=== PATIENT | male | born 1935 | race Caucasian/White ===

== ENCOUNTER → 2018-01-20 | Outpatient (CLI) | payer MEDICARE ==
[~2018-01-20] MED LIST: DOXAZOSIN MESYLA2 MG PO; TEMAZEPAM15 MG PO; [UNRECOGNIZED DRUG - REMARK]
== END ==
LOC: RAD 09:41
PROVIDERS: ATTEND Internal Medicine
DX: R06.02 Shortness of breath (principal); R05 Cough
CPT/HCPCS: 93306

== ENCOUNTER → 2018-08-20 | Outpatient (CLI) | payer MEDICARE ==
[~2018-08-20] MED LIST changes: +REGADENOSON 0.4 MG/5 ML SYR IV ONE
--- NOTE | 2018-08-20 20:51 | Myoview Stress Test ---
DATE OF STUDY: 08/20/2018 09:27:00 Stress Test - Treadmill ONLY PROCEDURE TITLE: Rest/stress single isotope SPECT imaging with pharmacologic stress and gated SPECT imaging. PROCEDURE IN DETAIL: Pharmacologic stress testing was performed with regadenoson per protocol. The heart rate was 96 beats per minute at rest and increased to 115 beats per minute during the regadenoson infusion, which is 85% of the maximum predicted heart rate. The rest blood pressure was 160/70 and decreased to 137/63 mmHg, which is a normal response. The resting electrocardiogram demonstrated normal sinus rhythm with a left bundle-branch block. There were no ST-segment changes suggestive of myocardial ischemia. PVCs were noted during stress and recovery. Myocardial perfusion imaging was performed at rest following the injection of 11 mCi of tetrofosmin. At peak pharmacologic effect, the patient was injected with 32.5 mCi of tetrofosmin. Gated post-stress tomographic imaging was performed. FINDINGS: The overall quality of the study is fair. Left ventricle is noted to be normal size on the rest and stress studies. SPECT images demonstrate homogeneous tracer distribution throughout the myocardium. Gated SPECT imaging reveals normal myocardial thickening and wall motion. The left ventricular ejection fraction is calculated to be greater than 70%. IMPRESSION: Myocardial perfusion imaging is normal. Overall left ventricular systolic function was normal without regional wall motion abnormalities. Yesika Cancino MD ABS/MODL /[id number]
== END ==
LOC: NM 09:10
PROVIDERS: ATTEND Internal Medicine Cardiovascular Disease
DX: R06.00 Dyspnea, unspecified (principal); R07.2 Precordial pain; I25.10 Atherosclerotic heart disease of native coronary artery without angina pectoris
CPT/HCPCS: 78452; 93017; A9502; J2785

== ENCOUNTER → 2018-09-14 | Day surgery (SDC) | payer MEDICARE ==
[2018-09-09 12:36] LABS: BASOPHILS % 0.4 % (0.0-1.0); EOSINOPHILS # (AUTO) 0.2 (0.0-0.4); EOSINOPHILS % 3.8 % (0.0-6.0); HEMATOCRIT 42.9 % (38.2-49.6); HEMOGLOBIN 14.6 g/dL (14.0-18.0); LYMPHOCYTES % 20.3 % (18.0-39.1); MEAN CORPUSCULAR HEMOGLOBIN 32.7 pg (28-32); MEAN CORPUSCULAR VOLUME 96.2 fL (81-99); MONOCYTES # (AUTO) 0.6 (0.2-0.8); MONOCYTES % 12.1 % (4.4-11.3); NEUTROPHILS # (AUTO) 3.2 (2.1-6.9); PLATELET COUNT 123 x10e3/uL (140-360); RED BLOOD COUNT 4.46 x10e6/uL (4.3-5.7); RED CELL DISTRIBUTION WIDTH 12.7 % (11.7-14.4)
[2018-09-09 13:09] LABS: ANION GAP 11.9 mmol/L (8-16); BLOOD UREA NITROGEN 15 mg/dL (7-26); BUN/CREATININE RATIO 19 (6-25); CALCIUM 9.1 mg/dL (8.4-10.2); CARBON DIOXIDE 21 mmol/L (22-29); CHLORIDE 112 mmol/L (98-107); CREATININE, SERUM 0.81 mg/dL (0.72-1.25); EST GLOMERULAR FILTRATION RATE > 60 ML/MIN (60-); GLUCOSE 112 mg/dL (74-118); POTASSIUM 3.9 mmol/L (3.5-5.1); SODIUM 141 mmol/L (136-145)
--- NOTE | 2018-09-09 13:09 | Diagnostic Imaging Report ---
EXAMINATION: PA and lateral views of the chest. COMPARISON: None CLINICAL HISTORY: Preop for urological procedure DISCUSSION: Left hemidiaphragmatic elevation with linear opacity in the left lung base, likely atelectasis. No airspace consolidation, pleural effusion, or pneumothorax. Tortuous thoracic aorta with otherwise normal cardiomediastinal contour. No acute osseous abnormality. IMPRESSION: No acute cardiopulmonary abnormalities. Signed by: Dr. Vel Huynh M.D. on 09/09/2018 1:05 PM
[~2018-09-14] MED LIST changes: +AMOXICILLIN250 MG PO; +ASPIRIN325 MG PO; +ATORVASTATIN CA20 MG PO; +CEFTRIAXONE SOD 1 GM/NS 50 ML 50 ML IV ONE; +CLOPIDOGREL75 MG PO; +DEXAMETHASONE SOD PHOS INJ 4 MG/ML VIAL ONE; +FUROSEMIDE40 MG PO; +IOPAMIDOL 610MG/1ML 300 MG/ML VIAL IV ONE; +LIDOCAINE HCL 2% LOCAL INJ 5 ML SDV VIAL INJ ONE; +LISINOPRIL2.5 MG PO; +METOPROLOL TART25 MG PO; +NITROGLYCERIN0.4 MG SL; +ONDANSETRON HCL INJ 2MG/ML 2ML 2 MG/ML VIAL ONE; +PROPOFOL IV EMULSION 10 MG/ML 20 ML VIAL ONE; -REGADENOSON 0.4 MG/5 ML SYR IV ONE; +SEVOFLURANE INHAL SOLN 250 ML PEN BTL ONE; +ULTRAM50 MG PO
--- OUTSIDE RECORDS SUMMARY | 2018-09-14 05:10 | XMS REPORT ---
Author Author [facility] Address Unknown Phone Unavailable Care Team Providers Care Communications Manager Name Role Phone MARILYN CINTRON Unavailable Unavailable Jae FLOOD Unavailable Unavailable Problems This patient has no known problems. Allergies, Adverse Reactions, Alerts This patient has no known allergies or adverse reactions. Medications This patient has no known medications. Results Test Description Test Time Test Comments Text Results Atomic Results Result Comments CHEST 2 VIEWS 2018-09-09 13:02:00 [place] [address] Patient Name: BARBARA MONGE SR MR #: [id number] : 1935 Age/Sex: 82/M Req #: [id number] Adm Physician: Ordered by: MARILYN CINTRON MD Report #: [id number] Location: OR Room/Bed: Procedure: [id number] DX/CHEST 2 VIEWS Exam Date: 09/09/18 Exam Time: 1230 REPORT STATUS: Signed EXAMINATION: PA and lateral views of the chest. COMP ARISON: None CLINICAL HISTORY: Preop for urological procedure DISCUSSION: Left hemidiaphragmatic elevation with linear opacity in the left lung base, likely atelectasis. No airspace consolidation, pleural effusion, or pneumothorax. Tortuous thoracic aorta with otherwise normal cardiomediastinal contour. No acute osseous abnormality. IMPRESSION: No acute cardiopulmonary abnormalities. Signed by: Dr. Kelly Reyes M.D. on 09/09/2018 1:05 PM Dictated By: KELLY REYES MD [id number] Transcribed By: MIKE on 09/09/18 8008 COPY TO: MARILYN CINTRON MD Stress Test - Treadmill ONLY 2018-08-20 17:55:00 [place] [address] Patient Name : BARBARA MONGE MR #: [id number] : 1935 Age/Sex: 82/M Adm Physician : MAN FLOOD DO Admit Date : 08/20/18 Location : [place] Room/Bed : REPORT: Myoview Stress Test DATE OF STUDY: 08/20/2018 09:27:00 PROCEDURE TITLE: Rest/stress single isotope SPECT imaging with pharmacologic stress and gated SPECT imaging. PROCEDURE IN DETAIL: Pharmacologic stress testing was performed with regadenoson per protocol. The heart rate was 96 beats per minute at rest and increased to 115 beats per minute during the regadenoson infusion, which is 85% of the maximum predicted heart rate. The rest blood pressure was 160/70 and decreased to 137/63 mmHg, which is a normal response. The resting electrocardiogram demonstrated normal sinus rhythm with a left bundle-branch block. There were no ST-segment changes suggestive of myocardial ischemia. PVCs were noted during stress and recovery. Myocardial perfusion imaging was performed at rest following the injection of 11 mCi of tetrofosmin. At peak pharmacologic effect, the patient was injected with 32.5 mCi of tetrofosmin. Gated post- stress tomographic imaging was performed. FINDINGS: The overall quality of the study is fair. Left ventricle is noted to be normal size on the rest and stress studies. SPECT images demonstrate homogeneous tracer distribution throughout the myocardium. Gated SPECT imaging reveals normal myocardial thickening and wall motion. The left ventricular ejection fraction is calculated to be greater than 70%. IMPRESSION: Myocardial perfusion imaging is normal. Overall left ventricular systolic function was normal without regional wall motion abnormalities. Yesika Cancino MD ABS/FAVIAN /[id number] Signature Date Dictated By: YESIKA CANCINO MD Transcribed By: FAVIAN on 08/20/18 <Electronically signed by YESIKA CANCINO MD><<Signature on File>>09/02/18 4726 COPY TO:
--- NOTE | 2018-09-14 05:43 | Diagnostic Imaging Report ---
Exam: Abdominal film Clinical History: Abdominal radiograph Comparison: None. DISCUSSION: Frontal view of the abdomen shows a nonobstructive bowel gas pattern with mild amount of retained stool. No dilated, air-filled loops of bowel. No abnormal calcifications. No acute bone abnormality. IMPRESSION: 1. Nonobstructive bowel gas pattern. Signed by: Dr. Randall Steele M.D. on 09/14/2018 5:39 AM
[2018-09-14 08:25] VITALS: BP 167/85
--- NOTE | 2018-09-14 17:14 | Operative Report ---
DATE OF PROCEDURE: 09/14/2018 SURGEON: Parminder Spence MD PREOPERATIVE DIAGNOSES: 1. Left kidney stone. 2. Microscopic hematuria. POSTOPERATIVE DIAGNOSES: 1. Left kidney stone. 2. Microscopic hematuria. 3. Benign prostatic hyperplasia. 4. Bladder calculus. PROCEDURES: 1. Cystoscopy, extraction of bladder calculus, simple. 2. Cystoscopy, right ureteral catheterization, right retrograde pyelogram (entirely separate procedure for microscopic hematuria). 3. Staged left-sided shock leprosy. 4. Supervision of fluoroscopy. 5. Interpretation of ventriculography. ANESTHESIA: General. ESTIMATED BLOOD LOSS: Minimal. COMPLICATIONS: None. INDICATIONS FOR PROCEDURE: Mr. Noe is a very pleasant 83-year-old male patient with a very large 1.5 cm left kidney stone per report. The patient has had intermittent renal colic and hematuria, and I had a long discussion of alternatives, risks, and benefits of doing nothing, shock leprosy, ureteroscopy, percutaneous surgery or open surgery. He voiced understanding of the options, alternatives, risks and benefits and elected to proceed. PROCEDURE IN DETAIL: After informed consent was obtained, the patient was taken to the operative suite, placed supine on the operating table. He underwent general anesthesia by Anesthesia Service, was placed in dorsal lithotomy position and sterilely prepped and draped for cystoscopy. A 22.5-Italian cystoscope was inserted per urethra. There was massive trilobar prostatic hypertrophy with bladder stones seen, very small granular of the bladder. These were evacuated. Multiple attempts were made to catheterize both ureteral orifices, only the right could be identified due to the massive trilobar prostatic hypertrophy and was managed to be catheterized with a very large degree of difficulty, reveals slightly delicate ureter. No evidence of filling defects on the right. Left ureter could not be catheterized or identified due to the massive trilobar prostatic hypertrophy. The stone was easily visualized. A total of 1500 shocks were delivered to the stone with good fragmentation seen. The patient tolerated the procedure well and was transferred to the recovery room in excellent condition, no untoward effects noted. Supervision of fluoroscopy and interpretation of ventriculography: I was present for the entire procedure and supervised fluoroscopy. There was no radiologist present. Attention was turned towards the right and left ureters, which were catheterized with a 5-Italian open-ended catheter. Retrograde pyelogram was performed, revealing delicate ureter, delicate pelvocaliceal systems. No evidence of filling defects. No evidence of hydronephrosis. IMPRESSION: Normal right retrograde pyelogram. Parminder Spence MD ES/MODL /[id number] cc: MD Rakesh Raines MD
== END | disposition home or self-care (01) ==
LOC: OR 05:00
PROVIDERS: ATTEND Urology
DX: N20.0 Calculus of kidney (principal); N40.0 Benign prostatic hyperplasia without lower urinary tract symptoms; N21.0 Calculus in bladder; I25.10 Atherosclerotic heart disease of native coronary artery without angina pectoris; I25.2 Old myocardial infarction; F41.9 Anxiety disorder, unspecified; Z01.812 Encounter for preprocedural laboratory examination; Z01.818 Encounter for other preprocedural examination; Z79.82 Long term (current) use of aspirin; Z79.02 Long term (current) use of antithrombotics/antiplatelets; Z95.5 Presence of coronary angioplasty implant and graft; Z87.891 Personal history of nicotine dependence
CPT/HCPCS: 36415; 52353; 71046; 74018; 80048; 85025; J0696; J1100; J2001; J2405; J2704; Q9967; 50590

== ENCOUNTER 2022-02-20 20:21 | Inpatient (IN) | payer MEDICARE ==
[~2022-02-20] VITALS: Ht 188 cm; Wt 104.3 kg
[~2022-02-20 20:21] MED LIST changes: -CEFTRIAXONE SOD 1 GM/NS 50 ML 50 ML IV ONE; -DEXAMETHASONE SOD PHOS INJ 4 MG/ML VIAL ONE; -IOPAMIDOL 610MG/1ML 300 MG/ML VIAL IV ONE; -LIDOCAINE HCL 2% LOCAL INJ 5 ML SDV VIAL INJ ONE; -ONDANSETRON HCL INJ 2MG/ML 2ML 2 MG/ML VIAL ONE; -PROPOFOL IV EMULSION 10 MG/ML 20 ML VIAL ONE; -SEVOFLURANE INHAL SOLN 250 ML PEN BTL ONE
[2022-02-20] MEDS ORDERED: ONDANSETRON HCL INJ 2MG/ML 2ML 2 MG/ML VIAL IV STA (21:12)
[2022-02-20] MEDS ORDERED: SODIUM CHLORIDE 0.9% 1000ML 1,000 ML IV ONE ×3 (21:15→21:30)
[2022-02-20] MEDS ORDERED: ACETAMINOPHEN 325 MG TAB PO ONE (21:15)
[2022-02-20 21:48] LABS: BASOPHILS % 0.1 % (0.0-1.0); HEMATOCRIT 40.9 % (38.2-49.6); HEMOGLOBIN 12.9 g/dL (14.0-18.0); LYMPHOCYTES # (AUTO) 0.6 (1.0-3.2); LYMPHOCYTES % 3.2 % (18.0-39.1); MEAN CORPUSCULAR HEMOGLOBIN 31.2 pg (28-32); MEAN CORPUSCULAR HGB CONC 31.5 g/dL (31-35); MONOCYTES # (AUTO) 1.3 (0.2-0.8); MONOCYTES % 7.7 % (4.4-11.3); NEUTROPHILS # (AUTO) 15.3 (2.1-6.9); NEUTROPHILS % 88.3 % (38.7-80.0); PLATELET COUNT 146 x10e3/uL (140-360); RED BLOOD COUNT 4.13 x10e6/uL (4.3-5.7); RED CELL DISTRIBUTION WIDTH 12.5 % (11.7-14.4)
[2022-02-20 21:49] LABS: ALBUMIN 3.5 g/dL (3.5-5.0); ALBUMIN/GLOBULIN RATIO 1.1 (0.8-2.0); ANION GAP 19.2 mmol/L (8-16); CALCIUM 9.1 mg/dL (8.4-10.2); CREATININE, SERUM 1.44 mg/dL (0.72-1.25); POTASSIUM 4.2 mmol/L (3.5-5.1)
[2022-02-20 22:03] LABS: CREATINE KINASE MB 1.4 ng/mL (0-5.0)
[2022-02-21] VITALS (7 sets, daily range): BP systolic 99–116; BP diastolic 50–52
[2022-02-21 00:03] LABS: CLARITY,URINE SL CLOUDY (CLEAR); COLOR,URINE YELLOW (YELLOW); KETONES,URINE NEGATIVE (NEGATIVE); LEUKOCYTE ESTERASE ,URINE SMALL (NEGATIVE); NITRITE,URINE NEGATIVE (NEGATIVE); PROTEIN,URINE DIPSTICK NEGATIVE (NEGATIVE); URINE UROBILINOGEN 0.2 mg/dL (0.2 - 1)
[2022-02-21 00:06] LABS: AMORPHOUS SEDIMENT,URINE FEW (FEW); BACTERIA,URINE FEW /HPF; EPITHELIAL CELLS,URINE FEW /LPF
[2022-02-21] MEDS ORDERED: DEXTROSE 50% SYRINGE 50 ML IV PRN (00:30)
[2022-02-21] MEDS ORDERED: ONDANSETRON HCL INJ 2MG/ML 2ML 2 MG/ML VIAL IV PRN (00:30)
[2022-02-21] MEDS: SODIUM CHLORIDE 0.9% 1000ML 1,000 ML IV SCH ×3 (02:44→15:26)
[2022-02-21] MEDS ORDERED: IOPAMIDOL 370 MG/ML 100 ML INFUS..BTL INJ ONE (05:16)
[2022-02-21] MEDS: INSULIN REGULAR, HUMAN 100 UNIT/1 ML SQ SCH ×2 (07:30→11:30)
[2022-02-21] MEDS: ASPIRIN 325 MG TAB PO SCH (09:12)
[2022-02-21] MEDS: METOPROLOL TARTRATE 25 MG TAB PO SCH ×2 (09:13→17:00)
[2022-02-21] MEDS: CLOPIDOGREL BISULFATE 75 MG TAB PO SCH (09:13)
[2022-02-21 09:44] LABS: CREATINE KINASE MB 4.3 ng/mL (0-5.0)
[2022-02-21 18:00] LABS: CREATINE KINASE MB 5.3 ng/mL (0-5.0)
[2022-02-21] MEDS: TEMAZEPAM 15 MG CAP PO SCH (21:36)
[2022-02-21] MEDS: ATORVASTATIN 20 MG TAB PO SCH (21:37)
[2022-02-22] VITALS (7 sets, daily range): BP systolic 121–146; BP diastolic 53–66
[2022-02-22 06:28] LABS: BASOPHILS % 0.2 % (0.0-1.0); EOSINOPHILS % 0.2 % (0.0-6.0); HEMATOCRIT 35.1 % (38.2-49.6); HEMOGLOBIN 11.5 g/dL (14.0-18.0); LYMPHOCYTES # (AUTO) 0.8 (1.0-3.2); LYMPHOCYTES % 6.6 % (18.0-39.1); MEAN CORPUSCULAR HEMOGLOBIN 31.8 pg (28-32); MEAN CORPUSCULAR HGB CONC 32.8 g/dL (31-35); MONOCYTES % 8.4 % (4.4-11.3); NEUTROPHILS % 84.1 % (38.7-80.0); PLATELET COUNT 121 x10e3/uL (140-360); RED BLOOD COUNT 3.62 x10e6/uL (4.3-5.7); RED CELL DISTRIBUTION WIDTH 13.3 % (11.7-14.4)
[2022-02-22] MEDS: ALBUTEROL/IPRATROPIUM 3 ML NEB NEB SCH ×3 (07:00→19:30)
[2022-02-22 07:02] LABS: ALBUMIN 2.8 g/dL (3.5-5.0); ANION GAP 13.2 mmol/L (8-16); CALCIUM 8.2 mg/dL (8.4-10.2); CREATININE, SERUM 1.05 mg/dL (0.72-1.25); POTASSIUM 4.2 mmol/L (3.5-5.1)
[2022-02-22] MEDS: METOPROLOL TARTRATE 25 MG TAB PO SCH ×2 (10:13→17:28)
[2022-02-22] MEDS: CLOPIDOGREL BISULFATE 75 MG TAB PO SCH (10:13)
[2022-02-22] MEDS: ASPIRIN 325 MG TAB PO SCH (10:13)
[2022-02-22] MEDS ORDERED: FUROSEMIDE INJ 10 MG/ML 2 ML VIAL IV NR (14:00)
[2022-02-22] MEDS: TEMAZEPAM 15 MG CAP PO SCH (21:39)
[2022-02-22] MEDS: ATORVASTATIN 20 MG TAB PO SCH (21:39)
[2022-02-23] VITALS (7 sets, daily range): BP systolic 133–157; BP diastolic 65–86
[2022-02-23] MEDS: ALBUTEROL/IPRATROPIUM 3 ML NEB NEB SCH ×3 (02:05→12:56)
[2022-02-23] MEDS: METOPROLOL TARTRATE 25 MG TAB PO SCH ×2 (09:05→17:18)
[2022-02-23] MEDS: CLOPIDOGREL BISULFATE 75 MG TAB PO SCH (09:05)
[2022-02-23] MEDS: ASPIRIN 325 MG TAB PO SCH (09:05)
[2022-02-23] MEDS: TEMAZEPAM 15 MG CAP PO SCH (21:48)
[2022-02-23] MEDS: ATORVASTATIN 20 MG TAB PO SCH (21:48)
[2022-02-24] VITALS (8 sets, daily range): BP systolic 148–173; BP diastolic 68–84
[2022-02-24] MEDS: ALBUTEROL/IPRATROPIUM 3 ML NEB NEB SCH ×4 (02:00→19:15)
[2022-02-24 06:11] LABS: BASOPHILS % 0.4 % (0.0-1.0); EOSINOPHILS # (AUTO) 0.4 (0.0-0.4); EOSINOPHILS % 3.9 % (0.0-6.0); HEMATOCRIT 37.7 % (38.2-49.6); HEMOGLOBIN 11.8 g/dL (14.0-18.0); LYMPHOCYTES # (AUTO) 0.7 (1.0-3.2); LYMPHOCYTES % 7.7 % (18.0-39.1); MEAN CORPUSCULAR HEMOGLOBIN 31.4 pg (28-32); MEAN CORPUSCULAR HGB CONC 31.3 g/dL (31-35); MEAN CORPUSCULAR VOLUME 100.3 fL (81-99); MONOCYTES # (AUTO) 0.8 (0.2-0.8); MONOCYTES % 9.1 % (4.4-11.3); NEUTROPHILS # (AUTO) 7.1 (2.1-6.9); NEUTROPHILS % 78.6 % (38.7-80.0); PLATELET COUNT 151 x10e3/uL (140-360); RED BLOOD COUNT 3.76 x10e6/uL (4.3-5.7); RED CELL DISTRIBUTION WIDTH 13.1 % (11.7-14.4)
[2022-02-24 06:39] LABS: ALBUMIN 2.9 g/dL (3.5-5.0); ANION GAP 14.6 mmol/L (8-16); CALCIUM 8.7 mg/dL (8.4-10.2); CREATININE, SERUM 1.01 mg/dL (0.72-1.25); MAGNESIUM 1.9 MG/DL (1.3-2.1); POTASSIUM 3.6 mmol/L (3.5-5.1)
[2022-02-24] MEDS: ASPIRIN 325 MG TAB PO SCH (09:08)
[2022-02-24] MEDS: METOPROLOL TARTRATE 25 MG TAB PO SCH ×2 (09:09→17:13)
[2022-02-24] MEDS: CLOPIDOGREL BISULFATE 75 MG TAB PO SCH (09:09)
[2022-02-24] MEDS: ATORVASTATIN 20 MG TAB PO SCH (20:07)
[2022-02-24] MEDS: TEMAZEPAM 15 MG CAP PO SCH (20:07)
[2022-02-25] VITALS (7 sets, daily range): BP systolic 130–148; BP diastolic 65–87
[2022-02-25] MEDS: ALBUTEROL/IPRATROPIUM 3 ML NEB NEB SCH ×4 (00:40→19:25)
[2022-02-25] MEDS: TRAMADOL HCL 50 MG TAB PO PRN (05:12)
[2022-02-25] MEDS: CLOPIDOGREL BISULFATE 75 MG TAB PO SCH (08:42)
[2022-02-25] MEDS: ASPIRIN 325 MG TAB PO SCH (08:42)
[2022-02-25] MEDS: METOPROLOL TARTRATE 25 MG TAB PO SCH ×2 (08:42→16:59)
[2022-02-25] MEDS: ATORVASTATIN 20 MG TAB PO SCH (21:31)
[2022-02-25] MEDS: TEMAZEPAM 15 MG CAP PO SCH (21:31)
[2022-02-26] MEDS: ALBUTEROL/IPRATROPIUM 3 ML NEB NEB SCH ×4 (01:00→20:40)
[2022-02-26] MEDS: TRAMADOL HCL 50 MG TAB PO PRN (04:11)
[2022-02-26 04:50] VITALS: BP 171/82
[2022-02-26 05:42] LABS: BASOPHILS # (AUTO) 0.1 (0.0-0.1); BASOPHILS % 0.7 % (0.0-1.0); EOSINOPHILS # (AUTO) 0.9 (0.0-0.4); EOSINOPHILS % 11.3 % (0.0-6.0); HEMATOCRIT 36.2 % (38.2-49.6); HEMOGLOBIN 11.9 g/dL (14.0-18.0); LYMPHOCYTES # (AUTO) 0.7 (1.0-3.2); LYMPHOCYTES % 9.9 % (18.0-39.1); MEAN CORPUSCULAR HEMOGLOBIN 31.6 pg (28-32); MEAN CORPUSCULAR HGB CONC 32.9 g/dL (31-35); MONOCYTES # (AUTO) 0.9 (0.2-0.8); MONOCYTES % 11.7 % (4.4-11.3); NEUTROPHILS # (AUTO) 4.9 (2.1-6.9); NEUTROPHILS % 65.9 % (38.7-80.0); PLATELET COUNT 157 x10e3/uL (140-360); RED BLOOD COUNT 3.77 x10e6/uL (4.3-5.7); RED CELL DISTRIBUTION WIDTH 13.1 % (11.7-14.4)
[2022-02-26 06:06] LABS: ALBUMIN 2.7 g/dL (3.5-5.0); ALBUMIN/GLOBULIN RATIO 0.8 (0.8-2.0); ANION GAP 14.6 mmol/L (8-16); CALCIUM 8.3 mg/dL (8.4-10.2); CREATININE, SERUM 0.97 mg/dL (0.72-1.25); MAGNESIUM 1.8 MG/DL (1.3-2.1); POTASSIUM 3.6 mmol/L (3.5-5.1)
[2022-02-26 08:00] VITALS: BP 151/75
[2022-02-26 08:00] LABS: EOSINOPHILS % (MANUAL) 10 % (0-7); LYMPHOCYTES % (MANUAL) 9 % (19-48); MONOCYTES % (MANUAL) 9 % (3.4-9.0); NEUTROPHILS % (MANUAL) 72 % (40-74); PLATELET ESTIMATE ADEQUATE; PLATELET MORPHOLOGY COMMENT NORMAL; RBC MORPHOLOGY COMMENT NORMAL
[2022-02-26] MEDS: CLOPIDOGREL BISULFATE 75 MG TAB PO SCH (08:26)
[2022-02-26] MEDS: METOPROLOL TARTRATE 25 MG TAB PO SCH ×2 (08:26→16:12)
[2022-02-26] MEDS: ASPIRIN 325 MG TAB PO SCH (08:27)
[2022-02-26 09:00] VITALS: BP 151/75
[2022-02-26 13:07] VITALS: BP 138/65
[2022-02-26 16:06] VITALS: BP 142/69
[2022-02-26 20:00] VITALS: BP_SYST 142; BP_SYST 150; BP_DIAS 69; BP_DIAS 94
[2022-02-26] MEDS: TEMAZEPAM 15 MG CAP PO SCH (21:11)
[2022-02-26] MEDS: ATORVASTATIN 20 MG TAB PO SCH (21:11)
[2022-02-27] VITALS (8 sets, daily range): BP systolic 140–179; BP diastolic 64–77
[2022-02-27] MEDS: ALBUTEROL/IPRATROPIUM 3 ML NEB NEB SCH ×4 (01:25→19:42)
[2022-02-27] MEDS: TRAMADOL HCL 50 MG TAB PO PRN (04:58)
[2022-02-27] MEDS: METOPROLOL TARTRATE 25 MG TAB PO SCH ×2 (09:05→17:42)
[2022-02-27] MEDS: CLOPIDOGREL BISULFATE 75 MG TAB PO SCH (09:05)
[2022-02-27] MEDS: ASPIRIN 81 MG ENTERIC COATED PO SCH (09:06)
[2022-02-27] MEDS ORDERED: SIMETHICONE 80 MG CHEW PO PRN (19:15)
[2022-02-27] MEDS: ATORVASTATIN 20 MG TAB PO SCH (20:57)
[2022-02-27] MEDS: TEMAZEPAM 15 MG CAP PO SCH (20:57)
[2022-02-27] MEDS: ONDANSETRON HCL 4 MG ORAL DISINTEGRATING TAB PO PRN (21:12)
[2022-02-27] MEDS: PROMETHAZINE 25MG/ NS 50ML (IV) IV PRN (23:03)
[2022-02-28] VITALS (8 sets, daily range): BP systolic 140–152; BP diastolic 70–82
[2022-02-28] MEDS: ALBUTEROL/IPRATROPIUM 3 ML NEB NEB SCH ×4 (00:50→19:40)
[2022-02-28] MEDS: SODIUM CHLORIDE 0.9% 250ML IRRIG IR SCH ×7 (00:52→23:00)
[2022-02-28] MEDS: DEXTROSE 5%/0.9% SOD CHL 1,000 ML IV SCH ×2 (04:30→17:26)
[2022-02-28 04:52] LABS: BASOPHILS % 0.4 % (0.0-1.0); EOSINOPHILS # (AUTO) 0.2 (0.0-0.4); EOSINOPHILS % 2.5 % (0.0-6.0); HEMATOCRIT 44.4 % (38.2-49.6); HEMOGLOBIN 14.2 g/dL (14.0-18.0); LYMPHOCYTES # (AUTO) 0.6 (1.0-3.2); LYMPHOCYTES % 8.6 % (18.0-39.1); MEAN CORPUSCULAR HEMOGLOBIN 31.4 pg (28-32); MEAN CORPUSCULAR VOLUME 98.2 fL (81-99); MONOCYTES # (AUTO) 0.7 (0.2-0.8); MONOCYTES % 10.1 % (4.4-11.3); NEUTROPHILS # (AUTO) 5.7 (2.1-6.9); PLATELET COUNT 160 x10e3/uL (140-360); RED BLOOD COUNT 4.52 x10e6/uL (4.3-5.7); RED CELL DISTRIBUTION WIDTH 13.4 % (11.7-14.4)
[2022-02-28 05:23] LABS: ALBUMIN 2.8 g/dL (3.5-5.0); ALBUMIN/GLOBULIN RATIO 0.7 (0.8-2.0); ANION GAP 17.5 mmol/L (8-16); CALCIUM 8.9 mg/dL (8.4-10.2); CREATININE, SERUM 0.91 mg/dL (0.72-1.25); POTASSIUM 4.5 mmol/L (3.5-5.1)
[2022-02-28] MEDS: METOCLOPRAMIDE HCL 10 MG/2ML VIAL IV SCH ×3 (06:26→22:04)
[2022-02-28] MEDS ORDERED: HYDRALAZINE HCL 20 MG/ML VIAL IV PRN (08:30)
[2022-02-28] MEDS: ASPIRIN 81 MG ENTERIC COATED PO SCH (09:00)
[2022-02-28] MEDS: METOPROLOL TARTRATE 25 MG TAB PO SCH ×2 (09:00→17:00)
[2022-02-28] MEDS: CLOPIDOGREL BISULFATE 75 MG TAB PO SCH (09:00)
[2022-02-28] MEDS: Morphine 2mg Syringe 2 MG/ML SYR IV PRN ×2 (09:03→18:21)
[2022-02-28] MEDS ORDERED: MINERAL OIL 132 ML BTL PR ONE (22:00)
[2022-02-28] MEDS: ATORVASTATIN 20 MG TAB PO SCH (22:05)
[2022-03-01] VITALS (8 sets, daily range): BP systolic 138–172; BP diastolic 67–82
[2022-03-01] MEDS: Morphine 2mg Syringe 2 MG/ML SYR IV PRN ×2 (01:03→20:02)
[2022-03-01] MEDS: ALBUTEROL/IPRATROPIUM 3 ML NEB NEB SCH ×4 (01:30→19:10)
[2022-03-01] MEDS: SODIUM CHLORIDE 0.9% 250ML IRRIG IR SCH ×6 (04:00→20:01)
[2022-03-01] MEDS: DEXTROSE 5%/0.9% SOD CHL 1,000 ML IV SCH (05:22)
[2022-03-01] MEDS: METOCLOPRAMIDE HCL 10 MG/2ML VIAL IV SCH ×3 (05:22→20:01)
[2022-03-01] MEDS: CLOPIDOGREL BISULFATE 75 MG TAB PO SCH (10:48)
[2022-03-01] MEDS: METOPROLOL TARTRATE 25 MG TAB PO SCH ×2 (10:48→18:21)
[2022-03-01] MEDS: ASPIRIN 81 MG ENTERIC COATED PO SCH (10:48)
[2022-03-01] MEDS: ONDANSETRON HCL 4 MG ORAL DISINTEGRATING TAB PO PRN (14:36)
[2022-03-01] MEDS: PROMETHAZINE 25MG/ NS 50ML (IV) IV PRN ×2 (14:39→20:02)
[2022-03-01] MEDS: HYDRALAZINE HCL 20 MG/ML VIAL IV PRN (18:46)
[2022-03-01] MEDS: ATORVASTATIN 20 MG TAB PO SCH (20:01)
[2022-03-02] VITALS (8 sets, daily range): BP systolic 143–172; BP diastolic 62–81
[2022-03-02] MEDS: Morphine 2mg Syringe 2 MG/ML SYR IV PRN ×2 (00:59→18:52)
[2022-03-02] MEDS: ALBUTEROL/IPRATROPIUM 3 ML NEB NEB SCH ×4 (01:00→19:45)
[2022-03-02] MEDS: SODIUM CHLORIDE 0.9% 250ML IRRIG IR SCH ×7 (03:00→23:08)
[2022-03-02] MEDS: METOCLOPRAMIDE HCL 10 MG/2ML VIAL IV SCH ×3 (06:00→22:17)
[2022-03-02 07:13] LABS: BASOPHILS % 0.3 % (0.0-1.0); HEMATOCRIT 36.6 % (38.2-49.6); LYMPHOCYTES # (AUTO) 0.6 (1.0-3.2); LYMPHOCYTES % 5.3 % (18.0-39.1); MEAN CORPUSCULAR HEMOGLOBIN 30.9 pg (28-32); MEAN CORPUSCULAR HGB CONC 30.1 g/dL (31-35); MEAN CORPUSCULAR VOLUME 102.8 fL (81-99); MONOCYTES # (AUTO) 0.6 (0.2-0.8); MONOCYTES % 5.9 % (4.4-11.3); NEUTROPHILS # (AUTO) 9.2 (2.1-6.9); PLATELET COUNT 212 x10e3/uL (140-360); RED BLOOD COUNT 3.56 x10e6/uL (4.3-5.7); RED CELL DISTRIBUTION WIDTH 13.2 % (11.7-14.4)
[2022-03-02 07:49] LABS: ANION GAP 13.5 mmol/L (8-16); CALCIUM 8.5 mg/dL (8.4-10.2); CREATININE, SERUM 0.88 mg/dL (0.72-1.25); POTASSIUM 3.5 mmol/L (3.5-5.1)
[2022-03-02] MEDS: METOPROLOL TARTRATE 25 MG TAB PO SCH ×2 (09:00→17:00)
[2022-03-02] MEDS: DEXTROSE 5%/0.9% SOD CHL 1,000 ML IV SCH ×3 (09:20→22:40)
[2022-03-02] MEDS: ASPIRIN 81 MG ENTERIC COATED PO SCH (15:28)
[2022-03-02] MEDS: CLOPIDOGREL BISULFATE 75 MG TAB PO SCH (15:28)
[2022-03-02] MEDS: HYDRALAZINE HCL 20 MG/ML VIAL IV PRN (17:50)
[2022-03-02] MEDS: ATORVASTATIN 20 MG TAB PO SCH (21:00)
[2022-03-03] VITALS (9 sets, daily range): BP systolic 138–172; BP diastolic 67–87
[2022-03-03] MEDS: ALBUTEROL/IPRATROPIUM 3 ML NEB NEB SCH ×4 (00:20→19:30)
[2022-03-03] MEDS: Morphine 2mg Syringe 2 MG/ML SYR IV PRN ×4 (00:24→18:17)
[2022-03-03] MEDS: SODIUM CHLORIDE 0.9% 250ML IRRIG IR SCH ×7 (03:00→23:00)
[2022-03-03 05:39] LABS: BASOPHILS % 0.3 % (0.0-1.0); EOSINOPHILS # (AUTO) 0.2 (0.0-0.4); EOSINOPHILS % 1.5 % (0.0-6.0); HEMATOCRIT 37.5 % (38.2-49.6); HEMOGLOBIN 11.2 g/dL (14.0-18.0); LYMPHOCYTES # (AUTO) 0.6 (1.0-3.2); LYMPHOCYTES % 4.8 % (18.0-39.1); MEAN CORPUSCULAR HEMOGLOBIN 30.6 pg (28-32); MEAN CORPUSCULAR HGB CONC 29.9 g/dL (31-35); MEAN CORPUSCULAR VOLUME 102.5 fL (81-99); MONOCYTES # (AUTO) 0.7 (0.2-0.8); MONOCYTES % 6.2 % (4.4-11.3); NEUTROPHILS % 86.9 % (38.7-80.0); PLATELET COUNT 229 x10e3/uL (140-360); RED BLOOD COUNT 3.66 x10e6/uL (4.3-5.7); RED CELL DISTRIBUTION WIDTH 13.3 % (11.7-14.4)
[2022-03-03] MEDS: METOCLOPRAMIDE HCL 10 MG/2ML VIAL IV SCH ×3 (06:02→21:47)
[2022-03-03 06:09] LABS: ALBUMIN 2.7 g/dL (3.5-5.0); ALBUMIN/GLOBULIN RATIO 0.7 (0.8-2.0); ANION GAP 15.9 mmol/L (8-16); CALCIUM 8.5 mg/dL (8.4-10.2); CREATININE, SERUM 0.89 mg/dL (0.72-1.25)
[2022-03-03 06:15] LABS: POTASSIUM 2.9 mmol/L (3.5-5.1)
[2022-03-03] MEDS ORDERED: POTASSIUM CHLORIDE 10MEQ/100ML 100 ML IV ONE (07:15)
[2022-03-03] MEDS: AMLODIPINE BESYLATE 10 MG TAB PO SCH (09:00)
[2022-03-03] MEDS: ASPIRIN 81 MG ENTERIC COATED PO SCH (09:00)
[2022-03-03] MEDS: CLOPIDOGREL BISULFATE 75 MG TAB PO SCH (09:00)
[2022-03-03] MEDS: METOPROLOL TARTRATE 25 MG TAB PO SCH ×2 (09:00→16:57)
[2022-03-03] MEDS: POTASSIUM CHLORIDE 10MEQ/100ML 100 ML IV SCH ×4 (09:17→13:42)
[2022-03-03] MEDS: DEXTROSE 5%/0.45% SOD CHL 1,000 ML IV SCH (15:30)
[2022-03-03] MEDS: ENOXAPARIN SOD INJ 40 MG/0.4 ML SYR SC SCH (16:57)
[2022-03-03] MEDS ORDERED: ENOXAPARIN 30 MG/0.3 ML SYR SC SCH (17:00)
[2022-03-03] MEDS: ATORVASTATIN 20 MG TAB PO SCH (21:00)
[2022-03-04] VITALS (8 sets, daily range): BP systolic 137–182; BP diastolic 70–87
[2022-03-04] MEDS: ALBUTEROL/IPRATROPIUM 3 ML NEB NEB SCH ×4 (00:47→19:42)
[2022-03-04] MEDS: Morphine 2mg Syringe 2 MG/ML SYR IV PRN ×2 (02:13→06:22)
[2022-03-04] MEDS: SODIUM CHLORIDE 0.9% 250ML IRRIG IR SCH ×5 (02:51→19:00)
[2022-03-04] MEDS: DEXTROSE 5%/0.45% SOD CHL 1,000 ML IV SCH ×2 (04:05→16:26)
[2022-03-04] MEDS: HYDRALAZINE HCL 20 MG/ML VIAL IV PRN (04:46)
[2022-03-04] MEDS: METOCLOPRAMIDE HCL 10 MG/2ML VIAL IV SCH ×3 (05:42→20:46)
[2022-03-04 06:16] LABS: BASOPHILS # (AUTO) 0.1 (0.0-0.1); BASOPHILS % 0.5 % (0.0-1.0); EOSINOPHILS # (AUTO) 0.2 (0.0-0.4); EOSINOPHILS % 1.5 % (0.0-6.0); HEMATOCRIT 34.7 % (38.2-49.6); HEMOGLOBIN 10.9 g/dL (14.0-18.0); LYMPHOCYTES # (AUTO) 0.6 (1.0-3.2); MEAN CORPUSCULAR HEMOGLOBIN 30.9 pg (28-32); MEAN CORPUSCULAR HGB CONC 31.4 g/dL (31-35); MEAN CORPUSCULAR VOLUME 98.3 fL (81-99); MONOCYTES # (AUTO) 0.7 (0.2-0.8); MONOCYTES % 7.6 % (4.4-11.3); NEUTROPHILS # (AUTO) 8.2 (2.1-6.9); NEUTROPHILS % 83.8 % (38.7-80.0); PLATELET COUNT 220 x10e3/uL (140-360); RED BLOOD COUNT 3.53 x10e6/uL (4.3-5.7); RED CELL DISTRIBUTION WIDTH 13.7 % (11.7-14.4)
[2022-03-04 06:41] LABS: ALBUMIN 2.8 g/dL (3.5-5.0); ALBUMIN/GLOBULIN RATIO 0.8 (0.8-2.0); ANION GAP 16.2 mmol/L (8-16); CALCIUM 8.4 mg/dL (8.4-10.2); CREATININE, SERUM 0.87 mg/dL (0.72-1.25); MAGNESIUM 2.1 MG/DL (1.3-2.1); POTASSIUM 3.2 mmol/L (3.5-5.1)
[2022-03-04] MEDS: ASPIRIN 81 MG ENTERIC COATED PO SCH (09:10)
[2022-03-04] MEDS: METOPROLOL TARTRATE 25 MG TAB PO SCH ×2 (09:10→16:22)
[2022-03-04] MEDS: CLOPIDOGREL BISULFATE 75 MG TAB PO SCH (09:10)
[2022-03-04] MEDS: AMLODIPINE BESYLATE 10 MG TAB PO SCH (09:11)
[2022-03-04] MEDS: ACETAMINOPHEN 325 MG TAB PO PRN ×2 (16:21→20:34)
[2022-03-04] MEDS: ENOXAPARIN SOD INJ 40 MG/0.4 ML SYR SC SCH (16:33)
[2022-03-04] MEDS: ATORVASTATIN 20 MG TAB PO SCH (20:34)
[2022-03-05] VITALS (7 sets, daily range): BP systolic 114–143; BP diastolic 56–68
[2022-03-05] MEDS: ALBUTEROL/IPRATROPIUM 3 ML NEB NEB SCH ×4 (00:25→20:00)
[2022-03-05] MEDS: PROMETHAZINE 25MG/ NS 50ML (IV) IV PRN (03:30)
[2022-03-05] MEDS ORDERED: POTASSIUM CHLORIDE 20MEQ/100ML 100 ML IV STA (04:30)
[2022-03-05] MEDS: SODIUM CHLORIDE 0.9% 250ML IRRIG IR SCH ×11 (04:58→23:06)
[2022-03-05 05:56] LABS: BASOPHILS % 0.2 % (0.0-1.0); EOSINOPHILS # (AUTO) 0.2 (0.0-0.4); EOSINOPHILS % 2.1 % (0.0-6.0); HEMATOCRIT 33.3 % (38.2-49.6); LYMPHOCYTES # (AUTO) 0.6 (1.0-3.2); LYMPHOCYTES % 6.1 % (18.0-39.1); MEAN CORPUSCULAR HEMOGLOBIN 30.7 pg (28-32); MEAN CORPUSCULAR VOLUME 102.1 fL (81-99); MONOCYTES # (AUTO) 0.7 (0.2-0.8); MONOCYTES % 7.1 % (4.4-11.3); NEUTROPHILS # (AUTO) 8.6 (2.1-6.9); PLATELET COUNT 220 x10e3/uL (140-360); RED BLOOD COUNT 3.26 x10e6/uL (4.3-5.7); RED CELL DISTRIBUTION WIDTH 13.1 % (11.7-14.4)
[2022-03-05] MEDS: METOCLOPRAMIDE HCL 10 MG/2ML VIAL IV SCH ×3 (06:00→20:18)
[2022-03-05 06:23] LABS: ALBUMIN 2.5 g/dL (3.5-5.0); ALBUMIN/GLOBULIN RATIO 0.8 (0.8-2.0); ANION GAP 14.9 mmol/L (8-16); CALCIUM 8.2 mg/dL (8.4-10.2); CREATININE, SERUM 0.93 mg/dL (0.72-1.25); MAGNESIUM 1.9 MG/DL (1.3-2.1)
[2022-03-05 06:26] LABS: POTASSIUM 2.9 mmol/L (3.5-5.1)
[2022-03-05] MEDS ORDERED: POTASSIUM CHLORIDE 20MEQ/100ML 100 ML IV ONE (06:45)
[2022-03-05] MEDS: DEXTROSE 5%/0.45% SOD CHL 1,000 ML IV SCH ×2 (06:45→20:17)
[2022-03-05] MEDS: ASPIRIN 81 MG ENTERIC COATED PO SCH (09:28)
[2022-03-05] MEDS: AMLODIPINE BESYLATE 10 MG TAB PO SCH (09:28)
[2022-03-05] MEDS: CLOPIDOGREL BISULFATE 75 MG TAB PO SCH (09:28)
[2022-03-05] MEDS: METOPROLOL TARTRATE 25 MG TAB PO SCH ×2 (09:29→16:54)
[2022-03-05] MEDS: ENOXAPARIN SOD INJ 40 MG/0.4 ML SYR SC SCH (16:55)
[2022-03-05] MEDS: ACETAMINOPHEN 325 MG TAB PO PRN (17:55)
[2022-03-05] MEDS: ATORVASTATIN 20 MG TAB PO SCH (20:17)
[2022-03-05] MEDS ORDERED: SODIUM CHLORIDE FLUSH 10 ML SYR IV ONE (21:00)
[2022-03-05] MEDS: Morphine 2mg Syringe 2 MG/ML SYR IV PRN (22:07)
[2022-03-06] VITALS (7 sets, daily range): BP systolic 126–158; BP diastolic 62–91
[2022-03-06] MEDS: ALBUTEROL/IPRATROPIUM 3 ML NEB NEB SCH ×4 (00:52→20:00)
[2022-03-06] MEDS: SODIUM CHLORIDE 0.9% 250ML IRRIG IR SCH ×11 (02:00→22:17)
[2022-03-06 05:01] LABS: BASOPHILS % 0.2 % (0.0-1.0); EOSINOPHILS # (AUTO) 0.2 (0.0-0.4); EOSINOPHILS % 2.4 % (0.0-6.0); HEMOGLOBIN 10.6 g/dL (14.0-18.0); LYMPHOCYTES # (AUTO) 0.7 (1.0-3.2); MEAN CORPUSCULAR HEMOGLOBIN 30.9 pg (28-32); MEAN CORPUSCULAR HGB CONC 30.3 g/dL (31-35); MONOCYTES # (AUTO) 0.8 (0.2-0.8); MONOCYTES % 8.1 % (4.4-11.3); NEUTROPHILS # (AUTO) 7.5 (2.1-6.9); NEUTROPHILS % 81.8 % (38.7-80.0); PLATELET COUNT 225 x10e3/uL (140-360); RED BLOOD COUNT 3.43 x10e6/uL (4.3-5.7)
[2022-03-06 05:17] LABS: ALBUMIN 2.7 g/dL (3.5-5.0); ALBUMIN/GLOBULIN RATIO 0.8 (0.8-2.0); CALCIUM 8.2 mg/dL (8.4-10.2); CREATININE, SERUM 0.85 mg/dL (0.72-1.25)
[2022-03-06] MEDS: Morphine 2mg Syringe 2 MG/ML SYR IV PRN ×4 (05:18→20:46)
[2022-03-06] MEDS: CLOPIDOGREL BISULFATE 75 MG TAB PO SCH (09:13)
[2022-03-06] MEDS: ASPIRIN 81 MG ENTERIC COATED PO SCH (09:13)
[2022-03-06] MEDS: METOPROLOL TARTRATE 25 MG TAB PO SCH ×2 (09:14→16:24)
[2022-03-06] MEDS: AMLODIPINE BESYLATE 10 MG TAB PO SCH (09:15)
[2022-03-06] MEDS ORDERED: POTASSIUM CHLORIDE 20 MEQ TAB CR PO ONE (11:00)
[2022-03-06] MEDS: DEXTROSE 5%/0.45% SOD CHL 1,000 ML IV SCH (11:06)
[2022-03-06] MEDS: METOCLOPRAMIDE HCL 10 MG/2ML VIAL IV SCH ×2 (14:53→20:48)
[2022-03-06] MEDS: ENOXAPARIN SOD INJ 40 MG/0.4 ML SYR SC SCH (16:21)
[2022-03-06] MEDS: ATORVASTATIN 20 MG TAB PO SCH (20:48)
[2022-03-06] MEDS: CENTRAL TPN FORMULA 1 BAG IV SCH (21:11)
[2022-03-07] VITALS (9 sets, daily range): BP systolic 128–158; BP diastolic 62–77
[2022-03-07] MEDS: SODIUM CHLORIDE 0.9% 250ML IRRIG IR SCH ×12 (00:31→23:00)
[2022-03-07] MEDS: Morphine 2mg Syringe 2 MG/ML SYR IV PRN ×2 (01:25→05:32)
[2022-03-07] MEDS: ALBUTEROL/IPRATROPIUM 3 ML NEB NEB SCH ×4 (02:50→19:05)
[2022-03-07] MEDS: METOCLOPRAMIDE HCL 10 MG/2ML VIAL IV SCH ×3 (05:31→21:26)
[2022-03-07 06:30] LABS: ALBUMIN 2.6 g/dL (3.5-5.0); ALBUMIN/GLOBULIN RATIO 0.7 (0.8-2.0); ANION GAP 16.1 mmol/L (8-16); CALCIUM 8.2 mg/dL (8.4-10.2); CREATININE, SERUM 0.81 mg/dL (0.72-1.25); POTASSIUM 3.1 mmol/L (3.5-5.1)
[2022-03-07] MEDS ORDERED: SERTRALINE HCL 50 MG TAB PO SCH (09:00)
[2022-03-07] MEDS: AMLODIPINE BESYLATE 10 MG TAB PO SCH (09:02)
[2022-03-07] MEDS: CLOPIDOGREL BISULFATE 75 MG TAB PO SCH (09:02)
[2022-03-07] MEDS: ASPIRIN 81 MG ENTERIC COATED PO SCH (09:03)
[2022-03-07] MEDS: METOPROLOL TARTRATE 25 MG TAB PO SCH ×2 (09:03→16:41)
[2022-03-07] MEDS: ACETAMINOPHEN 325 MG TAB PO PRN ×2 (10:16→16:43)
[2022-03-07] MEDS: BISACODYL 10 MG SUPP PR SCH (13:53)
[2022-03-07] MEDS: ENOXAPARIN SOD INJ 40 MG/0.4 ML SYR SC SCH (16:41)
[2022-03-07] MEDS: ATORVASTATIN 20 MG TAB PO SCH (21:26)
[2022-03-07] MEDS: TEMAZEPAM 15 MG CAP PO PRN (21:26)
[2022-03-07] MEDS: CENTRAL TPN FORMULA 1 BAG IV SCH (21:43)
[2022-03-08] MEDS: ALBUTEROL/IPRATROPIUM 3 ML NEB NEB SCH ×4 (00:20→19:15)
[2022-03-08 04:00] VITALS: BP 154/75
[2022-03-08] MEDS: METOCLOPRAMIDE HCL 10 MG/2ML VIAL IV SCH ×3 (05:57→20:08)
[2022-03-08 08:24] VITALS: BP 116/85
[2022-03-08 08:56] LABS: ANION GAP 14.2 mmol/L (8-16); CALCIUM 8.5 mg/dL (8.4-10.2); CREATININE, SERUM 0.77 mg/dL (0.72-1.25); POTASSIUM 3.2 mmol/L (3.5-5.1)
[2022-03-08 09:01] VITALS: BP 116/85
[2022-03-08] MEDS: CLOPIDOGREL BISULFATE 75 MG TAB PO SCH (09:25)
[2022-03-08] MEDS: ASPIRIN 81 MG ENTERIC COATED PO SCH (09:25)
[2022-03-08] MEDS: AMLODIPINE BESYLATE 10 MG TAB PO SCH (09:26)
[2022-03-08] MEDS: BISACODYL 10 MG SUPP PR SCH (09:26)
[2022-03-08] MEDS: METOPROLOL TARTRATE 25 MG TAB PO SCH ×2 (09:26→17:36)
[2022-03-08] MEDS ORDERED: POTASSIUM CHLORIDE 20 MEQ TAB CR PO NR ×2 (09:30→15:30)
[2022-03-08 11:32] VITALS: BP 132/62
[2022-03-08 16:08] VITALS: BP 130/67
[2022-03-08] MEDS: ENOXAPARIN SOD INJ 40 MG/0.4 ML SYR SC SCH (17:35)
[2022-03-08 20:00] VITALS: BP 129/67
[2022-03-08] MEDS: CENTRAL TPN FORMULA 1 BAG IV SCH (20:00)
[2022-03-08] MEDS: ATORVASTATIN 20 MG TAB PO SCH (20:08)
[2022-03-08] MEDS ORDERED: POTASSIUM CHLORIDE 20 MEQ TAB CR PO ONE (20:13)
[2022-03-08] MEDS: TEMAZEPAM 15 MG CAP PO PRN (21:01)
[2022-03-09] VITALS (8 sets, daily range): BP systolic 129–147; BP diastolic 62–90
[2022-03-09] MEDS: ALBUTEROL/IPRATROPIUM 3 ML NEB NEB SCH ×4 (01:30→19:00)
[2022-03-09] MEDS: METOCLOPRAMIDE HCL 10 MG/2ML VIAL IV SCH ×3 (05:25→20:49)
[2022-03-09 06:27] LABS: ALBUMIN 2.6 g/dL (3.5-5.0); ALBUMIN/GLOBULIN RATIO 0.7 (0.8-2.0); ANION GAP 12.5 mmol/L (8-16); CALCIUM 8.5 mg/dL (8.4-10.2); CREATININE, SERUM 0.8 mg/dL (0.72-1.25); MAGNESIUM 2.2 MG/DL (1.3-2.1); POTASSIUM 4.5 mmol/L (3.5-5.1)
[2022-03-09] MEDS: CLOPIDOGREL BISULFATE 75 MG TAB PO SCH (09:39)
[2022-03-09] MEDS: BISACODYL 10 MG SUPP PR SCH (09:39)
[2022-03-09] MEDS: ASPIRIN 81 MG ENTERIC COATED PO SCH (09:40)
[2022-03-09] MEDS: METOPROLOL TARTRATE 25 MG TAB PO SCH ×2 (09:40→17:21)
[2022-03-09] MEDS: AMLODIPINE BESYLATE 10 MG TAB PO SCH (09:40)
[2022-03-09] MEDS ORDERED: FUROSEMIDE INJ 10 MG/ML 2 ML VIAL IV ONE (14:00)
[2022-03-09] MEDS: ENOXAPARIN SOD INJ 40 MG/0.4 ML SYR SC SCH (17:20)
[2022-03-09] MEDS: TEMAZEPAM 15 MG CAP PO PRN (19:40)
[2022-03-09] MEDS: ATORVASTATIN 20 MG TAB PO SCH (20:48)
[2022-03-09] MEDS: CENTRAL TPN FORMULA 1 BAG IV SCH (21:02)
[2022-03-10] VITALS (7 sets, daily range): BP systolic 118–148; BP diastolic 60–75
[2022-03-10] MEDS: ALBUTEROL/IPRATROPIUM 3 ML NEB NEB SCH ×4 (00:10→19:20)
[2022-03-10] MEDS: METOCLOPRAMIDE HCL 10 MG/2ML VIAL IV SCH ×3 (05:36→20:32)
[2022-03-10 05:57] LABS: BASOPHILS % 0.5 % (0.0-1.0); EOSINOPHILS # (AUTO) 0.5 (0.0-0.4); EOSINOPHILS % 5.6 % (0.0-6.0); HEMATOCRIT 31.4 % (38.2-49.6); HEMOGLOBIN 10.2 g/dL (14.0-18.0); LYMPHOCYTES # (AUTO) 0.5 (1.0-3.2); LYMPHOCYTES % 6.2 % (18.0-39.1); MEAN CORPUSCULAR HEMOGLOBIN 31.2 pg (28-32); MEAN CORPUSCULAR HGB CONC 32.5 g/dL (31-35); MONOCYTES # (AUTO) 0.8 (0.2-0.8); MONOCYTES % 9.5 % (4.4-11.3); NEUTROPHILS # (AUTO) 6.2 (2.1-6.9); NEUTROPHILS % 77.6 % (38.7-80.0); PLATELET COUNT 218 x10e3/uL (140-360); RED BLOOD COUNT 3.27 x10e6/uL (4.3-5.7); RED CELL DISTRIBUTION WIDTH 12.9 % (11.7-14.4)
[2022-03-10 06:28] LABS: ANION GAP 13.7 mmol/L (8-16); CALCIUM 8.5 mg/dL (8.4-10.2); CREATININE, SERUM 0.83 mg/dL (0.72-1.25); POTASSIUM 4.7 mmol/L (3.5-5.1)
[2022-03-10] MEDS: ASPIRIN 81 MG ENTERIC COATED PO SCH (09:05)
[2022-03-10] MEDS: CLOPIDOGREL BISULFATE 75 MG TAB PO SCH (09:06)
[2022-03-10] MEDS: METOPROLOL TARTRATE 25 MG TAB PO SCH ×2 (09:06→17:10)
[2022-03-10] MEDS: AMLODIPINE BESYLATE 10 MG TAB PO SCH (09:07)
[2022-03-10] MEDS: BISACODYL 10 MG SUPP PR SCH (09:07)
[2022-03-10] MEDS ORDERED: FUROSEMIDE INJ 10 MG/ML 4 ML VIAL IV ONE (17:45)
[2022-03-10] MEDS: ATORVASTATIN 20 MG TAB PO SCH (20:32)
[2022-03-10] MEDS: TEMAZEPAM 15 MG CAP PO PRN (20:32)
[2022-03-10] MEDS: CENTRAL TPN FORMULA 1 BAG IV SCH (20:41)
[2022-03-11] VITALS (8 sets, daily range): BP systolic 118–149; BP diastolic 55–66
[2022-03-11] MEDS: ALBUTEROL/IPRATROPIUM 3 ML NEB NEB SCH ×4 (01:10→19:12)
[2022-03-11] MEDS: METOCLOPRAMIDE HCL 10 MG/2ML VIAL IV SCH ×3 (05:45→20:05)
[2022-03-11] MEDS: FUROSEMIDE INJ 10 MG/ML 4 ML VIAL IV SCH ×2 (05:45→13:35)
[2022-03-11 08:28] LABS: BASOPHILS % 0.5 % (0.0-1.0); EOSINOPHILS # (AUTO) 0.6 (0.0-0.4); EOSINOPHILS % 7.3 % (0.0-6.0); HEMATOCRIT 34.5 % (38.2-49.6); HEMOGLOBIN 10.3 g/dL (14.0-18.0); LYMPHOCYTES # (AUTO) 0.7 (1.0-3.2); MEAN CORPUSCULAR HEMOGLOBIN 31.7 pg (28-32); MEAN CORPUSCULAR HGB CONC 29.9 g/dL (31-35); MEAN CORPUSCULAR VOLUME 106.2 fL (81-99); MONOCYTES # (AUTO) 0.8 (0.2-0.8); MONOCYTES % 9.6 % (4.4-11.3); NEUTROPHILS # (AUTO) 5.9 (2.1-6.9); NEUTROPHILS % 73.2 % (38.7-80.0); PLATELET COUNT 239 x10e3/uL (140-360); RED BLOOD COUNT 3.25 x10e6/uL (4.3-5.7)
[2022-03-11] MEDS: METOPROLOL TARTRATE 25 MG TAB PO SCH ×2 (09:50→16:39)
[2022-03-11] MEDS: CLOPIDOGREL BISULFATE 75 MG TAB PO SCH (09:50)
[2022-03-11] MEDS: AMLODIPINE BESYLATE 10 MG TAB PO SCH (09:50)
[2022-03-11] MEDS: ASPIRIN 81 MG ENTERIC COATED PO SCH (09:50)
[2022-03-11 10:53] LABS: ANION GAP 13.5 mmol/L (8-16); CALCIUM 8.5 mg/dL (8.4-10.2); CREATININE, SERUM 0.86 mg/dL (0.72-1.25); POTASSIUM 4.5 mmol/L (3.5-5.1)
[2022-03-11] MEDS ORDERED: FUROSEMIDE INJ 10 MG/ML 4 ML VIAL ONE (13:42)
[2022-03-11] MEDS: ENOXAPARIN SOD INJ 40 MG/0.4 ML SYR SC SCH (16:39)
[2022-03-11] MEDS ORDERED: ALTEPLASE RECOMBINANT 2 MG/2 ML VIAL IV ONE (17:00)
[2022-03-11] MEDS: CENTRAL TPN FORMULA 1 BAG IV SCH (20:04)
[2022-03-11] MEDS: ATORVASTATIN 20 MG TAB PO SCH (20:05)
[2022-03-11] MEDS: TEMAZEPAM 15 MG CAP PO PRN (20:05)
[2022-03-12] VITALS (9 sets, daily range): BP systolic 107–140; BP diastolic 55–84
[2022-03-12] MEDS: ALBUTEROL/IPRATROPIUM 3 ML NEB NEB SCH ×4 (04:30→19:13)
[2022-03-12] MEDS: FUROSEMIDE INJ 10 MG/ML 4 ML VIAL IV SCH ×2 (06:22→17:03)
[2022-03-12] MEDS: METOCLOPRAMIDE HCL 10 MG/2ML VIAL IV SCH ×3 (06:22→20:57)
[2022-03-12] MEDS: CLOPIDOGREL BISULFATE 75 MG TAB PO SCH (07:59)
[2022-03-12] MEDS: AMLODIPINE BESYLATE 10 MG TAB PO SCH (08:00)
[2022-03-12] MEDS: ASPIRIN 81 MG ENTERIC COATED PO SCH (08:00)
[2022-03-12] MEDS: METOPROLOL TARTRATE 25 MG TAB PO SCH ×2 (08:01→17:04)
[2022-03-12 16:20] LABS: ANION GAP 15.2 mmol/L (8-16); CALCIUM 8.7 mg/dL (8.4-10.2); CREATININE, SERUM 0.98 mg/dL (0.72-1.25); POTASSIUM 4.2 mmol/L (3.5-5.1)
[2022-03-12] MEDS: ENOXAPARIN SOD INJ 40 MG/0.4 ML SYR SC SCH (17:04)
[2022-03-12] MEDS: ATORVASTATIN 20 MG TAB PO SCH (20:57)
[2022-03-12] MEDS: TEMAZEPAM 15 MG CAP PO PRN (21:06)
[2022-03-13] VITALS (8 sets, daily range): BP systolic 117–137; BP diastolic 58–68
[2022-03-13] MEDS: ALBUTEROL/IPRATROPIUM 3 ML NEB NEB SCH ×4 (03:05→19:20)
[2022-03-13] MEDS: METOCLOPRAMIDE HCL 10 MG/2ML VIAL IV SCH ×3 (05:37→20:48)
[2022-03-13] MEDS: FUROSEMIDE INJ 10 MG/ML 4 ML VIAL IV SCH ×2 (05:37→17:29)
[2022-03-13] MEDS: CLOPIDOGREL BISULFATE 75 MG TAB PO SCH (08:19)
[2022-03-13] MEDS: AMLODIPINE BESYLATE 10 MG TAB PO SCH (08:20)
[2022-03-13] MEDS: ASPIRIN 81 MG ENTERIC COATED PO SCH (08:20)
[2022-03-13] MEDS: METOPROLOL TARTRATE 25 MG TAB PO SCH ×2 (08:21→17:30)
[2022-03-13] MEDS: ENOXAPARIN SOD INJ 40 MG/0.4 ML SYR SC SCH (17:29)
[2022-03-13] MEDS: ATORVASTATIN 20 MG TAB PO SCH (20:48)
[2022-03-13] MEDS: TEMAZEPAM 15 MG CAP PO PRN (22:05)
[2022-03-14] MEDS: ALBUTEROL/IPRATROPIUM 3 ML NEB NEB SCH ×3 (01:30→12:10)
[2022-03-14 04:00] VITALS: BP 119/67
[2022-03-14] MEDS: FUROSEMIDE INJ 10 MG/ML 4 ML VIAL IV SCH (06:17)
[2022-03-14] MEDS: METOCLOPRAMIDE HCL 10 MG/2ML VIAL IV SCH ×2 (06:17→12:58)
[2022-03-14 08:00] LABS: ANION GAP 14.3 mmol/L (8-16); CALCIUM 8.6 mg/dL (8.4-10.2); CREATININE, SERUM 0.97 mg/dL (0.72-1.25); POTASSIUM 3.3 mmol/L (3.5-5.1)
[2022-03-14 08:05] VITALS: BP 131/73
[2022-03-14 08:12] VITALS: BP 131/73
[2022-03-14] MEDS ORDERED: POTASSIUM CHLORIDE 20 MEQ TAB CR PO ONE (08:35)
[2022-03-14] MEDS: ASPIRIN 81 MG ENTERIC COATED PO SCH (09:03)
[2022-03-14] MEDS: METOPROLOL TARTRATE 25 MG TAB PO SCH (09:04)
[2022-03-14] MEDS: AMLODIPINE BESYLATE 10 MG TAB PO SCH (09:05)
[2022-03-14] MEDS: CLOPIDOGREL BISULFATE 75 MG TAB PO SCH (09:05)
[2022-03-14 12:31] VITALS: BP 124/61
[2022-03-14 16:57] VITALS: BP 122/65
== END 2022-03-14 16:24 | disposition home health service (06) | DRG 871 ==
LOC: ER 20:24 → ERHOLD 02-21 00:19 → MED/SURG2 02-21 01:35
PROVIDERS: ADMIT Internal Medicine; ATTEND Internal Medicine
PROC: 3E03329 Introduction of Other Anti-infective into Peripheral Vein, Percutaneous Approach (ICD-10-PCS; 2022-02-20)
PROC: 02HV33Z Insertion of Infusion Device into Superior Vena Cava, Percutaneous Approach (ICD-10-PCS; principal; 2022-03-05)
PROC: 3E04329 Introduction of Other Anti-infective into Central Vein, Percutaneous Approach (ICD-10-PCS; 2022-03-06)
PROC: 3E0436Z Introduction of Nutritional Substance into Central Vein, Percutaneous Approach (ICD-10-PCS; 2022-03-06)
DX: A41.9 Sepsis, unspecified organism (principal); I50.33 Acute on chronic diastolic (congestive) heart failure; N39.0 Urinary tract infection, site not specified; K57.92 Diverticulitis of intestine, part unspecified, without perforation or abscess without bleeding; K56.7 Ileus, unspecified; K56.609 Unspecified intestinal obstruction, unspecified as to partial versus complete obstruction; E46 Unspecified protein-calorie malnutrition; I47.20 Ventricular tachycardia, unspecified; I13.0 Hypertensive heart and chronic kidney disease with heart failure and stage 1 through stage 4 chronic kidney disease, or unspecified chronic kidney disease; N31.9 Neuromuscular dysfunction of bladder, unspecified; I25.10 Atherosclerotic heart disease of native coronary artery without angina pectoris; N40.1 Benign prostatic hyperplasia with lower urinary tract symptoms; R33.8 Other retention of urine; N18.30 Chronic kidney disease, stage 3 unspecified; E87.6 Hypokalemia; N20.0 Calculus of kidney; Z91.199 Patient's noncompliance with other medical treatment and regimen due to unspecified reason; E87.8 Other disorders of electrolyte and fluid balance, not elsewhere classified; R65.20 Severe sepsis without septic shock; D69.6 Thrombocytopenia, unspecified; D64.9 Anemia, unspecified; R31.29 Other microscopic hematuria; Z86.16 Personal history of COVID-19; E78.00 Pure hypercholesterolemia, unspecified; Z68.29 Body mass index [BMI] 29.0-29.9, adult; R41.0 Disorientation, unspecified; R94.31 Abnormal electrocardiogram [ECG] [EKG]
CPT/HCPCS: 36415; 36569; 71045; 74018; 74019; 74177; 78708; 80048; 80053; 81001; 82550; 82553; 82948; 83605; 83735; 83880; 84484; 85025; 87040; 87400; 93005; 93306; 94640; 94799; 96361; 96365; 96366; 99251; 99284; A9562; J0360; J0696; J1650; J1940; J2270; J2405; J2543; J2550; J2765; J2997; J3480; J7030; J7042; Q0162; Q9967